=== PATIENT | female | born 1955 | race Caucasian/White ===

== ENCOUNTER → 2016-11-21 | Outpatient (CLI) | payer OTHER ==
[~2016-11-21] MED LIST: ALPR-412 PO; ASPI81TA82 PO; CALC600T9 PO; CHOL100010 PO; DOCU100C PO; ESTR1TAB2 PO; LEVO50TA PO; PRLSR20 PO; ZNTT/150 PO
[2016-11-21 16:02] LABS: URINE APPEARANCE CLOUDY (CLEAR); URINE BILIRUBIN NEG (NEG); URINE COLOR YELLOW; URINE NITRITE NEG (NEG); URINE SPECIFIC GRAVITY 1.018 (1.000-1.030); UROBILINOGEN NEG (NEG)
[2016-11-21 16:04] LABS: MANUAL MICROSCOPIC REQUIRED? NO; REVIEW REQ? NO
== END | disposition home or self-care (01) ==
LOC: C.LABSPEC 15:01
PROVIDERS: ATTEND Obstetrics & Gynecology
DX: R30.0 Dysuria (principal)

== ENCOUNTER → 2017-01-03 | Outpatient (CLI) | payer OTHER ==
--- NOTE | 2017-01-03 15:42 | DIAGNOSTIC IMAGING REPORT ---
THYROID ULTRASOUND HISTORY: Pain. Nodularity. CERVICALGIA COMPARISON: 12/12/2011 FINDINGS: Right lobe: Diffusely heterogeneous. Maximum dimension 3.1 cm. No well-defined nodular density. Left lobe: Maximum dimension 2.6 cm. Diffusely heterogeneous. Isthmus: No nodules. IMPRESSION: 1. Unchanged thyroid compared to the prior study. 2. Diffusely heterogeneous thyroid bilaterally with no evidence for a dominant nodule Electronically signed by: Gil De Luna M.D. 01/03/2017 3:40 PM Dictated Date/Time: 01/03/2017 3:39 PM
== END | disposition home or self-care (01) ==
LOC: C.ULTR 14:36
PROVIDERS: ATTEND Family Medicine
DX: M54.2 Cervicalgia (principal)

== ENCOUNTER → 2017-07-26 | Outpatient (CLI) | payer OTHER ==
[2017-07-26 17:57] LABS: THYROID STIMULATING HORMONE 3.12 uIu/ml (0.300-4.500)
== END | disposition home or self-care (01) ==
LOC: C.LABPVFM 13:52
PROVIDERS: ATTEND Family Medicine
DX: E03.9 Hypothyroidism, unspecified (principal)

== ENCOUNTER → 2017-09-13 | Outpatient (CLI) | payer OTHER ==
[~2017-09-13] MED LIST changes: +RANI150T85 PO; -ZNTT/150 PO
--- NOTE | 2017-09-13 13:41 | MAMMOGRAPHY REPORT ---
BILATERAL DIGITAL SCREENING MAMMOGRAM TOMOSYNTHESIS WITH CAD: 09/13/2017 CLINICAL HISTORY: Routine screening. Patient has no complaints. TECHNIQUE: Breast tomosynthesis in addition to standard 2D mammography was performed. Current study was also evaluated with a Computer Aided Detection (CAD) system. COMPARISON: Comparison is made to exams dated: 09/12/2016 mammogram, 09/07/2015 mammogram, 4 mammogram, 08/12/2013 mammogram, 08/03/2011 mammogram, and 08/02/2010 mammogram - [facility]. BREAST COMPOSITION: The tissue of both breasts is heterogeneously dense, which may obscure small mas ses. FINDINGS: The parenchymal pattern is unchanged. No developing mass, architectural distortion or clus ter of suspicious microcalcifications is seen in either breast. IMPRESSION: ACR BI-RADS CATEGORY 2: BENIGN There is no mammographic evidence of malignancy. A 1 year screening mammogram is recommended. The pa tient will receive written notification of the results. Approximately 10% of breast cancers are not detected with mammography. A negative mammographic report should not delay biopsy if a clinically suggestive mass is present. Erika Ortiz M.D. ay/:09/13/2017 08:03:57 Test Equipment Mechanic: Brissa Morales, [facility] letter sent: Normal 1/2 BI-RADS Code: ACR BI-RADS Category 2: Benign
== END | disposition home or self-care (01) ==
LOC: C.MAMM 07:27
PROVIDERS: ATTEND Family Medicine
DX: Z12.31 Encounter for screening mammogram for malignant neoplasm of breast (principal)

== ENCOUNTER → 2018-02-07 | Outpatient (CLI) | payer OTHER | END | disposition home or self-care (01) | LOC: C.LABPVFM 14:52 | PROVIDERS: ATTEND Family Medicine | DX: E03.9 Hypothyroidism, unspecified (principal) ==